=== PATIENT | male | born 1980 | race Hispanic/Latino ===

== ENCOUNTER 2016-10-23 15:44 | Day surgery (SDC) | payer OTHER ==
[~2016-10-23] VITALS: Ht 172.7 cm; Wt 64.9 kg
[2016-10-23] MEDS ORDERED: fentaNYL INJECTION 100 MCG/2 ML AMP IVP STA ×2 (18:09→19:59)
[2016-10-23] MEDS ORDERED: NS IV 1000 ML 1,000 ML IV STA (18:09)
--- NOTE | 2016-10-23 18:13 | ED Abdominal Pain ---
General Chief Complaint: Abdominal/GI Problems Stated Complaint: STOMACH PAIN/VOMITING Nursing Triage Note: c/o abd pain. Onset 0800. Chills reported. Sepsis Screen: No Definite Risk Source of Information: Patient Exam Limitations: No Limitations History of Present Illness Time Seen By Provider: 18:04 Initial Comments Here with report of diffuse abdominal pain that has worsened since this morning. Also reports chills but no fever. Does have nausea but no vomiting. Unable to really eat or drink today due to pain and nausea. Pain seems to be more right sided. Timing/Duration: 12 Hours Severity/Quality: Moderate, Severe, Aching Location: Generalized Abdomen Radiation: RUQ, RLQ Activities at Onset: None Modifying Factors: Worsens With Eating, Worsens With Movement, Worsens With Palpation Associated Symptoms: Fever/Chills, Nausea/Vomiting Allergies and Home Medications Allergies Coded Allergies: No Known Drug Allergies (Unverified , 10/23/16) Review of Systems Constitutional: see HPI, chills, No fever EENTM: No Symptoms Reported Respiratory: No Symptoms Reported Cardiovascular: No Symptoms Reported Gastrointestinal: See HPI, Abdominal Pain, Nausea, Denies Vomiting Genitourinary: No Symptoms Reported Musculoskeletal: no symptoms reported Skin: no symptoms reported Psychiatric/Neurological: No Symptoms Reported All Other Systems Reviewed Negative Unless Noted: Yes Past Socpogj-Hlxqef-Wlvmbj Hx Patient Social History Alcohol Use: Denies Use Recreational Drug Use: No Smoking Status: Never a Smoker Recent Foreign Travel: No Contact w/Someone Who Travel: No Recent Infectious Disease Expo: No Surgeries HX Surgeries: No Respiratory Hx Respiratory Disorders: No Cardiovascular Hx Cardiac Disorders: No Neurological Hx Neurological Disorders: No Genitourinary Hx Genitourinary Disorders: No Gastrointestinal Hx Gastrointestinal Disorders: No Musculoskeletal Hx Musculoskeletal Disorders: No Endocrine Hx Endocrine Disorders: No HEENT HX ENT Disorders: No Cancer Hx Cancer: No Reviewed Nursing Assessment Reviewed/Agree w Nursing PMH: Yes Family Medical History Significant Family History: No Pertinent Family Hx Physical Exam Vital Signs VS - Last 72 Hours, by Label 10/23/16 10/23/16 18:08 18:29 Temp 98.7 98.7 Pulse 70 B/P (MAP) 131/106 Pulse Ox 98 O2 Delivery Room Air Capillary Refill : Less Than 3 Seconds General Appearance: WD/WN, moderate distress HEENT: PERRL/EOMI, pharynx normal Neck: full range of motion, supple Respiratory: lungs clear, normal breath sounds Cardiovascular: regular rate, rhythm, no murmur Gastrointestinal: soft, guarding (right lower quadrant), tenderness Extremities: non-tender, normal inspection Back: normal inspection, no CVA tenderness, no vertebral tenderness Neurologic/Psychiatric: alert, oriented x 3 Skin: normal color, warm/dry Progress/Results/Core Measures Results/Orders Lab Results Laboratory Tests Test 10/23/16 18:30 Range/Units White Blood Count 15.9 H 4.3-11.0 10^3/uL Red Blood Count 5.37 4.35-5.85 10^6/uL Hemoglobin 15.5 13.3-17.7 G/DL Hematocrit 43 40-54 % Mean Corpuscular Volume 80 80-99 FL Mean Corpuscular Hemoglobin 29 25-34 PG Mean Corpuscular Hemoglobin Concent 36 32-36 G/DL Red Cell Distribution Width 12.5 10.0-14.5 % Platelet Count 238 130-400 10^3/uL Mean Platelet Volume 10.3 7.4-10.4 FL Neutrophils (%) (Auto) 88 H 42-75 % Lymphocytes (%) (Auto) 5 L 12-44 % Monocytes (%) (Auto) 7 0-12 % Eosinophils (%) (Auto) 0 0-10 % Basophils (%) (Auto) 0 0-10 % Neutrophils # (Auto) 14.0 H 1.8-7.8 X 10^3 Lymphocytes # (Auto) 0.8 L 1.0-4.0 X 10^3 Monocytes # (Auto) 1.0 0.0-1.0 X 10^3 Eosinophils # (Auto) 0.0 0.0-0.3 10^3/uL Basophils # (Auto) 0.0 0.0-0.1 10^3/uL Neutrophils % (Manual) 87 % Lymphocytes % (Manual) 4 % Monocytes % (Manual) 6 % Eosinophils % (Manual) 0 % Basophils % (Manual) 0 % Metamyelocytes % 1 % Band Neutrophils 2 % Blood Morphology Comment NORMAL Sodium Level 137 135-145 MMOL/L Potassium Level 3.2 L 3.6-5.0 MMOL/L Chloride Level 102 98-107 MMOL/L Carbon Dioxide Level 19 L 21-32 MMOL/L Anion Gap 16 H 5-14 MMOL/L Blood Urea Nitrogen 9 7-18 MG/DL Creatinine 0.87 0.60-1.30 MG/DL Estimat Glomerular Filtration Rate > 60 BUN/Creatinine Ratio 10 Glucose Level 111 H 70-105 MG/DL Calcium Level 9.8 8.5-10.1 MG/DL Total Bilirubin 1.4 H 0.1-1.0 MG/DL Aspartate Amino Transf (AST/SGOT) 27 5-34 U/L Alanine Aminotransferase (ALT/SGPT) 33 0-55 U/L Alkaline Phosphatase 107 40-136 U/L Total Protein 8.1 6.4-8.2 GM/DL Albumin 4.8 H 3.2-4.5 GM/DL Lipase 8 8-78 U/L My Orders Orders - AUTUMN AVERY MD Ct Abd/Pelv W (Appendicitis) (10/23/16 18:09) Ondansetron Injection (Zofran Injectio (10/23/16 18:15) Ns Iv 1000 Ml (Sodium Chloride 0.9%) (10/23/16 18:09) Fentanyl Injection (Sublimaze Injection (10/23/16 18:09) Iohexol Injection (Omnipaque 350 Mg/Ml 1 (10/23/16 18:30) Ns (Ivpb) (Sodium Chloride 0.9% Ivpb Bag (10/23/16 18:30) Medications Given in ED Current Medications Medications Dose Ordered Sig/Raina Route Start Time Stop Time Status Last Admin Dose Admin Iohexol 100 ml ONCE ONCE IV 10/23/16 18:30 10/23/16 18:31 UNV 10/23/16 18:46 100 ML Ondansetron HCl 4 mg ONCE ONCE IVP 10/23/16 18:15 10/23/16 18:16 DC 10/23/16 18:29 4 MG Sodium Chloride 100 ml ONCE ONCE IV 10/23/16 18:30 10/23/16 18:31 UNV 10/23/16 18:46 80 ML Vital Signs/I&O Vital Sign - Last 12Hours 10/23/16 10/23/16 18:08 18:29 Temp 98.7 98.7 Pulse 70 B/P (MAP) 131/106 Pulse Ox 98 O2 Delivery Room Air Blood Pressure Mean: 114 Progress Note : Progress Note Seen and evaluated. IV, labs, UA, normal saline 1 L bolus, Zofran 4 mg IV, fentanyl [address] abdomen and pelvis with appendicitis protocol ordered. 1924: CT results noted. This was discussed with the patient. Acute appendicitis. Dr. Fazal vasquez. Diagnostic Imaging Diagonstic Imaging: CT Plain Films/CT/US/NM/MRI: abdomen, pelvis Comments VIA [facility]. [place], [place] NAME: CARMELO SY [facility] REC#: [id number] PT STATUS: REG ER : 1980 PHYSICIAN: AUTUMN AVERY MD ADMIT DATE: 10/23/16/ER Draft Date of Exam:10/23/16 CT ABD/PELV W (APPENDICITIS) PROCEDURE: CT abdomen and pelvis with contrast, rule out appendicitis. TECHNIQUE: Multiple contiguous axial images were obtained through the abdomen and pelvis after the administration of intravenous contrast. INDICATION: Right lower quadrant pain, back pain, and pelvic pain. FINDINGS: The appendix is dilated measuring up to 13.8 mm in transverse diameter. There is appendicolith at the base of the appendix measuring 7.6 mm as well as stones in the distal tip of the appendix measuring up to a 6 mm. There is mild edema and inflammatory changes of the periappendiceal fat. There is a minute amount of pelvic free fluid. There is no loculated collection or abscess. There is no pneumatosis or free air. There is no bowel obstruction or ileus. The liver, gallbladder, spleen, adrenals and pancreas were unremarkable. The unobstructed kidneys appeared normal. Prostate, seminal vesicles, and urinary bladder unremarkable. The osseous structures and the lung bases nonacute. IMPRESSION: Findings most consistent with changes of acute appendicitis. Minute pelvic free fluid without abscess, obstruction or free intraperitoneal air. No other acute abnormalities. Results phoned to the ER physician. Dictated on workstation # [id number] Dict: 10/23/16 1859 Trans: 10/23/161911 JULIANNA [id number] Interpreted by: MAGALYS ARMAS Electronically signed by: Reviewed: Reviewed by Me, Discussed w/Radiologist Departure Communication Time/Spoke to Admitting Phy: 19:22 Impression Impression: Primary Impression: Appendicitis Qualified Codes: K35.3 - Acute appendicitis with localized peritonitis Disposition: ADMITTED INPATIENT Condition: Stable Decision to Admit Reason: Admit from ER (General) Decision to Admit/Date: Oct 23, 2016 Time/Decision to Admit Time: 19:22 Departure-Patient Inst. Referrals: NO,LOCAL PHYSICIAN (PCP/Family) Primary Care Physician AUTUMN AVERY MD Oct 23, 2016 18:13
[2016-10-23] MEDS ORDERED: ONDANSETRON 4 MG/2 ML (SDV) Z0FRAN IVP ONE (18:15)
[2016-10-23] MEDS ORDERED: IOHEXOL 350 MG/ML 100 ML (OMNIPAQUE 350) VIAL IV ONE (18:30)
[2016-10-23] MEDS ORDERED: NS 100 ML (IVPB) BAG IV ONE (18:30)
[2016-10-23 18:38] LABS: BASOPHILS % (AUTO) 0 % (0-10); EOSINOPHILS % (AUTO) 0 % (0-10); LYMPHOCYTES # (AUTO) 0.8 X 10^3 (1.0-4.0); LYMPHOCYTES % (AUTO) 5 % (12-44); MEAN CORPUSCULAR HEMOGLOBIN 29 PG (25-34); MEAN CORPUSCULAR HGB CONC 36 G/DL (32-36); MEAN CORPUSCULAR VOLUME 80 FL (80-99); MEAN PLATELET VOLUME 10.3 FL (7.4-10.4); MONOCYTES % (AUTO) 7 % (0-12); NEUTROPHILS % (AUTO) 88 % (42-75); PLATELET COUNT 238 10^3/uL (130-400); RED BLOOD COUNT 5.37 10^6/uL (4.35-5.85); RED CELL DISTRIBUTION WIDTH 12.5 % (10.0-14.5); WHITE BLOOD COUNT 15.9 10^3/uL (4.3-11.0)
[2016-10-23 18:58] LABS: ALANINE AMINOTRANSFERASE 33 U/L (0-55); ALBUMIN 4.8 GM/DL (3.2-4.5); ANION GAP 16 MMOL/L (5-14); ASPARTATE AMINO TRANSFERASE 27 U/L (5-34); BILIRUBIN,TOTAL 1.4 MG/DL (0.1-1.0); BLOOD UREA NITROGEN 9 MG/DL (7-18); BUN/CREATININE RATIO 10; CALCIUM 9.8 MG/DL (8.5-10.1); CARBON DIOXIDE 19 MMOL/L (21-32); CHLORIDE 102 MMOL/L (98-107); CREATININE SERUM 0.87 MG/DL (0.60-1.30); GFR ESTIMATED > 60; GLUCOSE 111 MG/DL (70-105); LIPASE 8 U/L (8-78); POTASSIUM 3.2 MMOL/L (3.6-5.0); SODIUM 137 MMOL/L (135-145); TOTAL PROTEIN 8.1 GM/DL (6.4-8.2)
--- NOTE | 2016-10-23 19:13 | Diagnostic Imaging Report ---
PROCEDURE: CT abdomen and pelvis with contrast, rule out appendicitis. TECHNIQUE: Multiple contiguous axial images were obtained through the abdomen and pelvis after the administration of intravenous contrast. INDICATION: Right lower quadrant pain, back pain, and pelvic pain. FINDINGS: The appendix is dilated measuring up to 13.8 mm in transverse diameter. There is appendicolith at the base of the appendix measuring 7.6 mm as well as stones in the distal tip of the appendix measuring up to a 6 mm. There is mild edema and inflammatory changes of the periappendiceal fat. There is a minute amount of pelvic free fluid. There is no loculated collection or abscess. There is no pneumatosis or free air. There is no bowel obstruction or ileus. The liver, gallbladder, spleen, adrenals and pancreas were unremarkable. The unobstructed kidneys appeared normal. Prostate, seminal vesicles, and urinary bladder unremarkable. The osseous structures and the lung bases nonacute. IMPRESSION: Findings most consistent with changes of acute appendicitis. Minute pelvic free fluid without abscess, obstruction or free intraperitoneal air. No other acute abnormalities. Results phoned to the ER physician. Dictated by: Dictated on workstation # [id number]
[2016-10-23 19:17] LABS: BAND NEUTROPHILS 2 %; BASOPHILS % (MANUAL) 0 %; EOSINOPHILS % (MANUAL) 0 %; LYMPHOCYTES % (MANUAL) 4 %; METAMYELOCYTES % 1 %; NEUTROPHILS % (MANUAL) 87 %
[2016-10-23 19:56] LABS: BILIRUBIN,URINE NEGATIVE (NEGATIVE); KETONES,URINE 2+ (NEGATIVE); LEUKOCYTE ESTERASE ,URINE NEGATIVE (NEGATIVE); NITRITE,URINE NEGATIVE (NEGATIVE); PH,URINE 8 (5-9); PROTEIN,URINE NEGATIVE (NEGATIVE); UROBILINOGEN,URINE NORMAL (NORMAL)
[2016-10-23] MEDS ORDERED: cefTRIAXone INJECTION 1,000 MG in NS (IVPB) 50 ML IV ONE (20:00)
[2016-10-23 20:10] LABS: SQUAMOUS EPITHELIAL CELL,UR RARE /HPF
[2016-10-23 21:00] VITALS: BP 129/77
[2016-10-23] MEDS ORDERED: CATHETER FLUSH 10 ML SYR IV PRN (21:15)
[2016-10-23] MEDS ORDERED: ONDANSETRON 4 MG/2 ML (SDV) Z0FRAN IV PRN (21:15)
[2016-10-23] MEDS ORDERED: fentaNYL INJECTION 100 MCG/2 ML AMP IV PRN (21:15)
[2016-10-23] MEDS: metroNIDAZOLE 500 MG/100 ML IVPB (PRE-MIX) IV SCH (21:52)
[2016-10-23] MEDS: CATHETER FLUSH 10 ML SYR IV SCH (21:52)
[2016-10-23] MEDS: ACETAMINOPHEN 325 MG TABLET/CAPLET (TYLENOL) PO PRN (23:03)
--- NOTE | 2016-10-23 23:46 | Progress Note-Pre Operative ---
Pre-Operative Progress Note H&P Reviewed The H&P was reviewed, patient examined and no changes noted. Date Seen by Provider: Oct 23, 2016 Time Seen by Provider: 23:45 Date H&P Reviewed: Oct 23, 2016 Time H&P Reviewed: 23:45 Pre-Operative Diagnosis: acute appendicitis MAN ARANA MD Oct 23, 2016 11:46 pm
[2016-10-24] VITALS: BP 132/73
[2016-10-24] MEDS: fentaNYL INJECTION 100 MCG/2 ML AMP IV PRN ×2 (00:41→05:07)
--- NOTE | 2016-10-24 01:01 | HISTORY AND PHYSICAL ---
DATE OF ADMISSION: 10/23/2016 Severo Vázquez is a 36-year-old male who presented to [facility] emergency department today with abdominal pain. He reports that this started last night; however, was significantly worse this morning. He reports that the pain is more in the right lower abdominal quadrant. He also reports mild chills at home; however, no fevers. He also reports some nausea; however, no vomiting. A CT scan was performed, which did show a dilated appendix with periappendiceal fat stranding. The largest diameter of the appendix is approximately 13 mm with a fecalith consistent with acute appendicitis. PAST MEDICAL HISTORY: None. PAST SURGERIES: None. ALLERGIES: No known drug allergies. MEDICATIONS: None. SOCIAL HISTORY: Negative smoke. Negative alcohol. FAMILY HISTORY: Noncontributory. VITAL SIGNS: Temperature 98.7, blood pressure 131/06, pulse 78 and pulse oximetry 98% on room air. REVIEW OF SYSTEMS: This is a well-nourished male, currently guarded secondary to the abdominal pain. He is not experiencing any shortness of breath or difficulty breathing. Mild nausea. No vomiting. He states that his bowel movements have been normal. No red blood per rectum. No dark tarry stools. Mild chills. No fevers. No recent inadvertent weight loss. All other review of systems negative. PHYSICAL EXAMINATION: CHEST: Clear. Good breath sounds. HEART: Regular. No murmurs. EXTREMITIES: No lower extremity edema. Negative Leandra sign. HEENT: No scleral icterus. No cervical lymphadenopathy. ABDOMEN: Soft, nondistended. There is pain in the right lower abdominal quadrant at McBurney's point with voluntary guarding. No rebound. SKIN: Warm and dry. LABS: WBC 15.9, hemoglobin 15.5, hematocrit 43, platelets 238. ASSESSMENT AND PLAN: 36-year-old male with acute appendicitis. We will admit him, start him IV fluids, as well as IV antibiotics and proceed with laparoscopic appendectomy on this admission. Job ID: [id number] Dictated Date: 10/23/2016 20:16:24 Carpet Renovator Date: 10/24/2016 00:47:30/rena
[2016-10-24] MEDS ORDERED: NS IV 1000 ML 1,000 ML IV SCH (01:45)
[2016-10-24] MEDS: CATHETER FLUSH 10 ML SYR IV SCH (03:49)
[2016-10-24 04:00] VITALS: BP 123/76
[2016-10-24] MEDS: HYDROcodone/APAP 7.5 MG/325 MG (LORTAB, LORCET PLUS) TABLET PO PRN ×2 (04:50→14:40)
[2016-10-24 07:16] LABS: BASOPHILS % (AUTO) 0 % (0-10); EOSINOPHILS % (AUTO) 0 % (0-10); LYMPHOCYTES # (AUTO) 0.7 X 10^3 (1.0-4.0); LYMPHOCYTES % (AUTO) 4 % (12-44); MEAN CORPUSCULAR HEMOGLOBIN 29 PG (25-34); MEAN CORPUSCULAR HGB CONC 35 G/DL (32-36); MEAN CORPUSCULAR VOLUME 82 FL (80-99); MEAN PLATELET VOLUME 10.6 FL (7.4-10.4); MONOCYTES # (AUTO) 1.4 X 10^3 (0.0-1.0); MONOCYTES % (AUTO) 7 % (0-12); NEUTROPHILS # (AUTO) 17.3 X 10^3 (1.8-7.8); NEUTROPHILS % (AUTO) 89 % (42-75); PLATELET COUNT 190 10^3/uL (130-400); RED BLOOD COUNT 5.14 10^6/uL (4.35-5.85); RED CELL DISTRIBUTION WIDTH 12.6 % (10.0-14.5); WHITE BLOOD COUNT 19.5 10^3/uL (4.3-11.0)
[2016-10-24 07:38] LABS: ALANINE AMINOTRANSFERASE 25 U/L (0-55); ALBUMIN 4.1 GM/DL (3.2-4.5); ANION GAP 16 MMOL/L (5-14); ASPARTATE AMINO TRANSFERASE 18 U/L (5-34); BILIRUBIN,TOTAL 1.7 MG/DL (0.1-1.0); BLOOD UREA NITROGEN 8 MG/DL (7-18); BUN/CREATININE RATIO 10; CALCIUM 8.6 MG/DL (8.5-10.1); CARBON DIOXIDE 17 MMOL/L (21-32); CHLORIDE 101 MMOL/L (98-107); CREATININE SERUM 0.82 MG/DL (0.60-1.30); GFR ESTIMATED > 60; GLUCOSE 118 MG/DL (70-105); POTASSIUM 3.1 MMOL/L (3.6-5.0); SODIUM 134 MMOL/L (135-145); TOTAL PROTEIN 6.9 GM/DL (6.4-8.2)
[2016-10-24] MEDS: metroNIDAZOLE 500 MG/100 ML IVPB (PRE-MIX) IV SCH (08:19)
[2016-10-24] MEDS: ACETAMINOPHEN 325 MG TABLET/CAPLET (TYLENOL) PO PRN (08:20)
[2016-10-24 08:30] VITALS: BP 131/74
[2016-10-24] MEDS ORDERED: morphine INJ 10 MG/ML 1ML (SYR OR VIAL) ONE (08:57)
[2016-10-24] MEDS ORDERED: fentaNYL INJECTION 100 MCG/2 ML AMP ONE (09:44)
[2016-10-24] MEDS ORDERED: MIDAZOLAM 2 MG/2 ML (VERSED) VIAL ONE (09:44)
[2016-10-24] MEDS ORDERED: BUP/EPI 0.5% 1:200,000 (MARCAINE) 10ML VIAL IJ ONE ×2 (10:11)
[2016-10-24] MEDS: LACTATED RINGERS 1,000 ML IV PRN ×2 (10:19→11:15)
[2016-10-24] MEDS ORDERED: ceFAZolin 1,000 MG (ANCEF) VIAL ONE (10:44)
[2016-10-24] MEDS ORDERED: ceFAZolin 1,000 MG (ANCEF) VIAL IV NR (10:59)
[2016-10-24] MEDS ORDERED: DEXAMETHASONE PF 10 MG/ML (DECADRON) VIAL ONE (11:03)
[2016-10-24] MEDS ORDERED: SEVOFLURANE (ULTANE) 15 ML INHAL SOLN ONE ×5 (11:03→11:19)
[2016-10-24] MEDS ORDERED: ONDANSETRON 4 MG/2 ML (SDV) Z0FRAN ONE (11:03)
[2016-10-24] MEDS ORDERED: LIDOCAINE PF 2% 5 ML (XYLOCAINE) VIAL ONE (11:03)
[2016-10-24] MEDS ORDERED: LACTATED RINGERS 1,000 ML IV ONE ×2 (11:03→11:07)
[2016-10-24] MEDS ORDERED: proPOfol 200 MG/20 ML (DIPRIVAN) VIAL IV ONE (11:03)
[2016-10-24] MEDS ORDERED: GLYCOPYRROLATE 0.2 MG/ML (ROBINUL) 2 ML VIAL ONE (11:08)
[2016-10-24] MEDS ORDERED: NEOSTIGMINE (BLOXIVERZ ) 1 MG/1ML 10 ML VIAL ONE (11:08)
[2016-10-24] MEDS ORDERED: ROCURONIUM 50 MG/5 ML (ZEMURON) VIAL IV ONE (11:13)
--- NOTE | 2016-10-24 11:43 | Progress Note-Post Operative ---
Post-Operative Progess Note Surgeon (s)/Mixing Engineer (s) Surgeon MAN ARANA MD Mixing Engineer: lay valencia BAKESHOP CLEANER Pre-Operative Diagnosis acute appendicitis Post-Operative Diagnosis same Procedure & Operative Findings Date of Procedure 10/24/16 Procedure Performed/Findings laparoscopic appendectomy Anesthesia Type GET Estimated Blood Loss Estimated blood loss (mL): minimal Specimens/Packing Specimens Removed appendix MAN ARANA MD Oct 24, 2016 11:43 am
[2016-10-24] MEDS ORDERED: AMOX-358 PO (11:49)
[2016-10-24] MEDS ORDERED: HYDR-3816 PO (11:49)
--- NOTE | 2016-10-24 11:50 | Discharge Inst-Surgical ---
D/C Lap Instructions-YASMEEN New, Converted, or Re-Newed RX: RX on Chart Follow Up Appt in 2 weeks Activity as tolerated No driving for 24 hours No driving while on pain medications Incentive Spirometry use every 2 hours while awake Regular Diet Symptoms to Report: Fever over 101 degree F, Nausea/Vomiting Infection Signs and Symptoms to report: Increased redness, Foul odor of wound, Increased drainage Bathing instructions: May shower Operative Area Clean/Dry; Keep incision clean/dry If any problems/questions: Contact your physician or go to Emergency Room MAN ARANA MD Oct 24, 2016 11:50 am
[2016-10-24] MEDS ORDERED: MEPERIDINE (DEMEROL) INJ 50 MG/ML IVP PRN (12:00)
[2016-10-24] MEDS ORDERED: morphine INJ 10 MG/ML 1ML (SYR OR VIAL) IVP PRN (12:00)
[2016-10-24] MEDS ORDERED: ONDANSETRON 4 MG/2 ML (SDV) Z0FRAN IVP PRN (12:00)
[2016-10-24 12:50] VITALS: BP 109/63
[2016-10-24] MEDS ORDERED: MEPERIDINE (DEMEROL) INJ 50 MG/ML ONE (12:52)
[2016-10-24 16:39] VITALS: BP 109/63
[2016-10-24] MEDS ORDERED: cefTRIAXone 1 GM/NS 50 ML IVPB IV SCH ×2 (20:00)
--- NOTE | 2016-10-25 11:27 | OPERATIVE REPORT ---
PROCEDURE PHYSICIAN: MAN ARANA DATE OF ADMISSION: 10/23/2016 DATE OF PROCEDURE: 10/24/2016 PREOPERATIVE DIAGNOSIS: Acute appendicitis. POSTOPERATIVE DIAGNOSIS: Acute appendicitis. PROCEDURE: Laparoscopic appendectomy. SURGEON: Dr. Arana. EAR NOSE AND THROAT SPECIALIST: Dino Gonzales APRN. ANESTHESIA: General endotracheal. ESTIMATED BLOOD LOSS: Minimal. FINDINGS: Acutely inflamed appendix with early necrotic changes; however, no perforation. DISPOSITION: The patient tolerated the procedure well. Mr. Severo Vázquez is a 36-year-old male who presented to [facility] emergency department with pain in the right lower abdominal quadrant. He had reported pain that started the day previous however, worsened in severity and become more localized to the right lower abdominal quadrant. A CT scan was performed, which did show an inflamed, as well as dilated appendix consistent with an acute appendicitis. He also had leukocytosis. The patient was brought to the operating room, laid supine on the table. After adequate IV pain and sedative medications and general endotracheal intubation the abdomen was prepped and draped in standard surgical fashion. 0.5 % Marcaine with epinephrine was used to anesthetize the overlying skin in the left upper abdominal quadrant. A small transverse skin incision made using a 15 blade. An 0 silk suture was applied to the medial aspect of the incision for retraction and a Veress needle inserted with a low opening pressure of 0 mmHg. The abdomen was then insufflated to 15 mmHg pressure. The Veress needle removed and a 5 mm Xcel trocar placed followed by a 5 mm, 45 degrees angle laparoscope, visualizing the peritoneal cavity. Under direct visualization we then proceeded to place a supraumbilical 10 mm port after the skin and peritoneum were anesthetized using 0.5% Marcaine and a transverse skin incision made using a 15 blade. In a similar manner, a suprapubic 5 mm port was placed. The patient was then placed in Trendelenburg position as well as planed right side up, left side down. The omentum was covering the appendix, which was removed. Acute appendicitis was identified with early necrotic changes on the outside; however, no perforation. The appendix was then retracted toward the anterior abdominal wall. A window was then created in the mesentery using electrocautery on the hook instrument. We were able to use the SATYA 45 mm stapler across the base of the appendix at the cecum, as well as appendiceal artery to staple and transect the structures with visualization of good hemostasis. The appendix was removed through the 10 mm port site using an Endo Catch bag. The 10 mm port site, fascia and peritoneum were then closed under direct visualization using a Femi-Jada device and 0 Vicryl suture. The abdomen was desufflated and remaining ports removed. All skin incisions were closed using 4-0 Monocryl running subcuticular sutures. Wounds are then cleaned and covered Dermabond. The patient tolerated the procedure well. We will start IV and oral pain medication as well as a clear liquid diet. Once he is tolerating clears, has good pain control with oral pain medications, ambulating well with this discharge him home. Job ID: [id number] Dictated Date: 10/24/2016 11:34:02 Master Data Analyst Date: 10/25/2016 11:18:36 / ozzie
== END 2016-10-24 16:25 | disposition home or self-care (01) ==
LOC: ER 15:47 → 4TH 19:45 → UNDOADMOB 19:45 → SDC 19:45 → UNDODISOB 10-24 16:25 → SDC 10-24 16:25
PROVIDERS: ATTEND Surgery
DX: K35.80 Unspecified acute appendicitis (principal)
CPT/HCPCS: 36415; 74177; 80053; 81000; 83690; 85007; 85025; 85027; 87081; 88304; 96365; 96375; 96376